=== PATIENT | female | born 1965 | race Caucasian/White ===

== ENCOUNTER 2023-12-19 07:34 | Emergency (ER) | payer OTHER, SELFPAY ==
[2023-12-19 08:05] VITALS: BP 154/76; PULSE 82; RESP 17; TEMP 36.4; O2SAT 100
[2023-12-19 08:31] VITALS: PULSE 83; O2SAT 100
--- NOTE | 2023-12-19 08:31 | ED.EXTPRO ---
HPI - Extremity Problem General Chief complaint: Extremity Problem,Nontraumatic Stated complaint: red spot on calf Time Seen by Provider: 12/19/23 08:20 Source: patient, RN notes reviewed and old records reviewed Mode of arrival: Ambulatory Limitations: no limitations History of Present Illness HPI Narrative: This is a 58-year-old female with history of hypertension states she is being weaned down on her blood pressure medication, lumpectomy proximally a month ago who presents with concern for a spot on her right calf. Patient is concerned for DVT. She states she was gardening 2 days ago developed some pain on the lateral edge of her calf had some swelling and then developed some bruising over the site of the swelling. The swelling had improved in that localized area but now has tract down towards her foot and up over the lateral calf. Patient states it is tender when she walks but otherwise not very painful. Denies any redness or warmth otherwise. No swelling of the leg. No numbness tingling or weakness. She does not recall any other specific injuries. No fevers or chills. No chest pain or shortness of breath, no nausea or vomiting no other GI or urinary symptoms. Patient is not currently on any daily medications. Besides lumpectomy no other prior surgeries. No known drug allergies. Denies tobacco, rare alcohol, no recreational drugs. Related Data Home Medications Medication Instructions Recorded Confirmed lisinopril 10 mg tablet 10 mg PO DAILY 10/28/21 07/20/22 Allergies Allergy/AdvReac Type Severity Reaction Status Date / Time No Known Drug Allergies Allergy Unverified 07/20/22 10:08 Review of Systems Review of Systems ROS Unobtainable: All systems reviewed & are unremarkable except as noted in HPI and below Patient History Medical History Vision disorder Hearing loss Surgical History History of anterior colporrhaphy (~12/2020) Family History Father Hypertension Mother Cancer Social History Smoking Status: Never smoker Smoking Status: Never smoker Exam Narrative Exam Narrative: GENERAL: Alert and oriented x three, female in mild distress HEENT: Head normocephalic, atraumatic, EOMI, pupils reactive, face symmetric, moist mucous membranes NECK: Supple, full range of motion CARDIOVASCULAR: Regular rate and rhythm without murmurs, rubs or gallops. RESPIRATORY: Breath sounds equal bilaterally, no wheezes rales or rhonchi. ABDOMEN: Soft, nontender. Normoactive bowel sounds all 4 quadrants. No guarding or rebound, rigidity, no mass : No CVA tenderness EXTREMITIES: Normal range of motion, no clubbing or edema. Neurovascularly intact. Patient has what appears to be ecchymosis over the right lateral calf extending about 8 cm but patchy, there is no palpable hematoma. Minimal to no pain. Patient does not have any edema or swelling of the lower extremities otherwise. No bony tenderness. Full range of motion. 2+ dorsalis pedis normal sensation throughout. Negative Homans. NEUROLOGICAL: Cranial nerves II through XII grossly intact. Moving all extremities SKIN: Warm, dry, no petechiae, no rashes or lesions. Initial Vital Signs Initial Vital Signs: Vital Signs Temperature 97.6 F 12/19/23 08:05 Pulse Rate 82 12/19/23 08:05 Respiratory Rate 17 12/19/23 08:05 Blood Pressure 154/76 H 12/19/23 08:05 Pulse Oximetry 100 12/19/23 08:05 Oxygen Delivery Method Room Air 12/19/23 08:05 Course Orders Ordered: ED Orders 12/19/23 08:30 US periph venous low extrem rt Stat Vital Signs Vital signs: Vital Signs - 8 hr 12/19/23 08:05 12/19/23 08:31 12/19/23 08:32 Temperature 97.6 F Pulse Rate 82 83 Respiratory Rate 17 Blood Pressure 154/76 H 152/74 H Pulse Oximetry 100 100 Oxygen Delivery Method Room Air Room Air 12/19/23 08:32 Temperature Pulse Rate 79 Respiratory Rate Blood Pressure Pulse Oximetry 99 Oxygen Delivery Method Room Air MDM - Extremity (Nontraumatic) Imaging Data US - DVT: Radiologist's Impression: Close Vascular Ultrasound (Signed) Marcella Giles - 12/19/23 Mammogram Result 10/06/23 Launch?[address] [address] Ultrasound Report Signed Patient: Kimber Ramirez MR#: [id number] : 1965 Acct:[id number] Age/Sex: 58 / F Date of Service: 12/19/23 Loc: ED Accession Number: [id number] Procedure: US periph venous low extrem rt Ordering Provider: Jami Alexander D.O. PROCEDURE: US PERIP VENOUS LOW EXTREM RT INDICATIONS: right leg discolor, pt concern for dvt, had lumpectomy 1 mo TECHNIQUE: Real-time imaging, as well as color and pulse Doppler interrogation, were performed of the lower extremity deep veins from the inguinal ligament to the popliteal fossa, with documentation of the visualized calf veins. COMPARISON: None. FINDINGS: The common femoral, femoral, popliteal, and the visualized calf veins are normally compressible, and free of intraluminal thrombus. Color and pulse Doppler demonstrate normal phasic intraluminal flow. There is normal augmentation response to distal compression maneuver. IMPRESSION: No findings of lower extremity deep venous thrombosis. Dictated by: Marcella Giles M.D. on 12/19/2023 at 9:23 Approved by: Marcella Giles M.D. on 12/19/2023 at 9:25 [facility] Narrative Medical decision making narrative: 58-year-old female with concern for DVT after lumpectomy proximally a month ago. Patient does have what appears to be some ecchymosis describes having a lump that has improved but that color changes had spread up the calf. DVT ultrasound is negative. Patient has skin changes most consistent with a ecchymosis. Does not appear to be infectious at this time. No obvious trauma patient states she was gardening when she felt discomfort. Patient has not had any other inappropriate bruising or bleeding not felt to require lab work at this time. Discharge Plan Departure Patient Disposition: Home Clinical Impression: Discoloration of skin of lower leg Activity Restrictions/Additional Instructions: Your DVT ultrasound today is negative. If the discoloration on your leg does not improve over the next week please follow up with primary care. Please follow up if you have fevers increasing swelling, redness or changes to your leg, new numbness tingling or weakness, loss of sensation or other new or concerning changes. Prescriptions: No Action lisinopril 10 mg tablet 10 mg PO DAILY Referrals: Miscellaneous,Doctor, [Primary Care Provider] - Stand Alone Forms: Patient Portal/API
[2023-12-19 08:32] VITALS: BP 152/74; PULSE 79; O2SAT 99
[2023-12-19 09:54] VITALS: BP 138/70; PULSE 80; RESP 16; O2SAT 99
== END 2023-12-19 09:55 | disposition home or self-care (01) ==
PROVIDERS: Emergency Provider Emergency Medicine
DX: R22.41 Localized swelling, mass and lump, right lower limb (principal)
CPT/HCPCS: 93971; 99282; 99283